=== PATIENT | female | born 1940 | race Caucasian/White ===

== ENCOUNTER → 2017-11-24 | Outpatient (CLI) | payer MEDICARE ==
[~2017-11-24] MED LIST: HYDR-3240 PO; LEVO50TA5 PO; MULT-26 PO; RAMI5CAP PO; RIVA20TA PO; SOTA80TA PO
== END | disposition home or self-care (01) ==
LOC: CFH 15:39
PROVIDERS: ATTEND Family Medicine Sports Medicine
DX: M79.661 Pain in right lower leg (principal); R60.0 Localized edema; I10 Essential (primary) hypertension

== ENCOUNTER → 2018-10-17 | Outpatient (CLI) | payer MEDICARE ==
[~2018-10-17] MED LIST changes: -RAMI5CAP PO; +RAMI5CAP57 PO
== END | disposition home or self-care (01) ==
LOC: CVU 14:39
PROVIDERS: ATTEND Physician Assistant
DX: I08.0 Rheumatic disorders of both mitral and aortic valves (principal); I10 Essential (primary) hypertension; I48.91 Unspecified atrial fibrillation; E03.9 Hypothyroidism, unspecified; Z85.038 Personal history of other malignant neoplasm of large intestine; Z95.0 Presence of cardiac pacemaker
CPT/HCPCS: 93306